=== PATIENT | female | born 1985 | race Hispanic/Latino ===

== ENCOUNTER → 2024-03-25 13:26 | Outpatient (REF) | payer BC, SELFPAY | LOC: PNTC 13:26 | PROVIDERS: ATTENDING PHYSICIAN Obstetrics & Gynecology | DX: Z36.0 Encounter for antenatal screening for chromosomal anomalies (principal); Z36.82 Encounter for antenatal screening for nuchal translucency | CPT/HCPCS: 36415; 59025; 76801; 76813 ==

== ENCOUNTER 2024-10-01 11:23 | Inpatient (IN) | payer BC, SELFPAY ==
[2024-10-01 11:36] VITALS: BP 114/73; BMI 28.1
[2024-10-01 12:34] LABS: % Basophils 0.3 % (0-2); % Eosinophils 0.1 % (0-6); % Immature Granulocytes 0.3 % (0-0.5); % Lymphocytes 15.6 % (20.5-51.1); % Monocytes 5.7 % (1.7-9.3); Absolute Lymphocytes 1.2 10^3/uL (1.2-3.4); Absolute Monocytes 0.4 10^3/uL (0.1-0.6); Absolute Neutrophils 5.9 10^3/uL (1.4-6.5); Hematocrit 35.8 % (37.0-47.0); Hemoglobin 12.4 g/dL (12.0-16.0); Mean Corp Hgb Conc. 34.6 g/dL (33.0-37.0); Mean Corpuscular Hgb 29.4 pg (27.0-31.0); Mean Corpuscular Volume 84.8 fL (81.0-99.0); Mean Platelet Volume 11.9 fL (7.4-10.4); Nucleated Red Blood Cells % 0 %; Platelet Count 163 10^3/uL (130-400); Red Blood Cell Count 4.22 10^6/uL (4.20-5.40); Red Cell Dist. Width 14.6 % (11.5-14.5); White Blood Cell Count 7.5 10^3/uL (4.8-10.8)
[2024-10-01] MEDS: SUBLIMAZE 100 MCG EPIDURAL (13:34)
[2024-10-01] MEDS: FENTANYL/BUPIVACAINE 100 EPIDURAL (13:34)
[2024-10-01] MEDS: LR 1000 IV (13:41)
[2024-10-01] MEDS: PITOCIN 30 UNITS/NSS 500 ML IV (17:10)
[2024-10-01] MEDS: MOTRIN 600 MG PO (21:04)
[2024-10-02] MEDS: MOTRIN 600 MG PO ×3 (03:49→20:02)
[2024-10-02 04:19] LABS: Hematocrit 34.6 % (37.0-47.0); Hemoglobin 11.8 g/dL (12.0-16.0)
[2024-10-02] MEDS: TYLENOL 650 MG PO ×3 (04:25→20:01)
[2024-10-02] MEDS: PRENATAL PLUS 1 TABLET PO (07:57)
[2024-10-02 13:56] LABS: Urine Albumin 1+ (Neg - Trace); Urine Bilirubin Negative (Negative); Urine Character Clear (Clear); Urine Color Yellow; Urine Glucose Negative (Negative); Urine Ketone Negative (Negative); Urine Leukocyte Negative (Negative); Urine Nitrite Negative (Negative); Urine Occult Blood 1+ (Negative); Urine Specific Gravity 1.005 (<1.030); Urine Urobilinogen Negative (Neg - 1+)
[2024-10-02 14:15] LABS: Urine Amorphous Seen; Urine Urothelial Cell 0-2 /LPF (FEW)
[2024-10-02 14:16] LABS: Urine Red Blood Cell 0-2 /HPF (0-2); Urine White Cell 0-2 /HPF (0-5)
[2024-10-02] MEDS: SENOKOT-S 1 TABLET PO (20:02)
[2024-10-03] MEDS: TYLENOL 650 MG PO ×2 (02:01→07:51)
[2024-10-03] MEDS: MOTRIN 600 MG PO ×2 (02:02→07:51)
[2024-10-03] MEDS: PRENATAL PLUS 1 TABLET PO (07:51)
[2024-10-03 11:39] LABS: Syphilis/T. pallidum Ab Reflex Negative (Negative)
== END 2024-10-03 13:41 | disposition home or self-care (01) | DRG 807 ==
LOC: LDRP 11:23
PROVIDERS: Obstetrics & Gynecology; ADMITTING PHYSICIAN Obstetrics & Gynecology
PROC: 10E0XZZ Delivery of Products of Conception, External Approach (ICD-10-PCS; 2024-10-01)
PROC: 0UQMXZZ Repair Vulva, External Approach (ICD-10-PCS; 2024-10-01)
PROC: 10907ZC Drainage of Amniotic Fluid, Therapeutic from Products of Conception, Via Natural or Artificial Opening (ICD-10-PCS; 2024-10-01)
DX: O69.81X0 Labor and delivery complicated by cord around neck, without compression, not applicable or unspecified (principal); Z37.0 Single live birth; O70.0 First degree perineal laceration during delivery; Z3A.39 39 weeks gestation of pregnancy; Z88.5 Allergy status to narcotic agent; Z91.048 Other nonmedicinal substance allergy status
CPT/HCPCS: 36415; 81003; 81015; 85014; 85018; 85025; 86780; 86850; 86900; 86901

== ENCOUNTER 2025-02-21 09:55 | Emergency (ER) | payer BC, SELFPAY ==
[2025-02-21 09:56] VITALS: BMI 23.7
[2025-02-21 10:15] VITALS: BP 119/65
[2025-02-21 11:28] LABS: Hematocrit 34.9 % (37.0-47.0); Hemoglobin 11.9 g/dL (12.0-16.0); Mean Corp Hgb Conc. 34.1 g/dL (33.0-37.0); Mean Corpuscular Volume 81.5 fL (81.0-99.0); Platelet Count 184 10^3/uL (130-400); Red Cell Dist. Width 13.1 % (11.5-14.5)
[2025-02-21 11:41] LABS: ALT (SGPT) 49 U/L (0-35); AST (SGOT) 43 U/L (14-36); Albumin 4.1 g/dl (3.5-5.0); Alkaline Phosphatase 78 U/L (38-126); Blood Urea Nitrogen 6 mg/dl (7-17); Calcium 9.1 mg/dl (8.4-10.2); Carbon Dioxide 23 mmol/L (22-30); Chloride 94 mmol/L (98-107); Glucose 124 mg/dl (70-99); Potassium 3.2 mmol/L (3.5-5.1); Sodium 127 mmol/L (135-145); Total Protein 6.8 g/dl (6.3-8.2); eGFR > 60.00
[2025-02-21 11:43] VITALS: BP 103/63
[2025-02-21 12:00] VITALS: BP 100/62
[2025-02-21] MEDS: NSS 1000 IV (12:10)
[2025-02-21 12:16] LABS: Nucleated Red Blood Cells % 0 %
[2025-02-21] MEDS: DUONEB 3 ML INH (12:42)
[2025-02-21 13:00] VITALS: BP 108/94
[2025-02-21] MEDS: ROCEPHIN 1000 MG IV (13:37)
[2025-02-21] MEDS: ZITHROMAX INFUSION 250 IV (13:37)
[2025-02-21 14:00] VITALS: BP 98/55
--- NOTE | 2025-02-21 14:19 | ED.GENMED ---
History of Present Illness
General
Chief Complaint: Cough
Time Seen by Provider: 02/21/25 12:07
History of Present Illness
History of Present Illness:
39-year-old otherwise healthy female presents to the emergency department for evaluation of fever and productive cough for the past 4 days. Notes that multiple members of her household been sick over the past 1 to 2 weeks with similar respiratory
illnesses but all have gotten better with no specific treatment. She reports increasing right sided chest pain. Went to urgent care prior to arrival and was diagnosed with pneumonia by chest x-ray thus sent to the ED for further evaluation. She
is 4 months and currently breast-feeding
Review of Systems
Review of Systems
Allergies reviewed?: Yes
All Other Systems: ROS reviewed and negative except as documented in HPI and ROS
Phy Exam
Physical Exam
Physical Exam:
GEN: Well appearing, NAD, WDWN
HEENT: Oral mucosa moist, no scleral icterus
Cardiac: Tachycardic, regular
Lung: No respiratory distress, no tachypnea, diminished bibasilar breath sounds
MSK: No gross deformity or injuries
Skin: Good color, no pallor or jaundice, no rashes
Neuro: AO x3, moves all extremities freely
Psych: Calm, cooperative
Course
Orders/Labs/Results
Orders:
Orders
02/21/25 11:15
Electrocardiogram (*1) Urgent
Reason for Study: Shortness of Breath
02/21/25 11:16
EKG- Treatment ONCE
02/21/25 11:20
Complete Blood Count/With Diff Urgent
Comprehensive Metabolic Panel Urgent
Lactic Acid Q4H
Comment: ON ICE, CANCEL 2ND ORDER IF FIRST LACTIC ACID LEVEL <2
Blood Culture Urgent
NICOLASA Source: Blood/Venous
Specimen Description:
02/21/25 11:27
Blood Culture Urgent
NICOLASA Source: Blood/Venous
Specimen Description:
02/21/25 12:09
0.9% Sodium Chloride 1000 ml [Nss] 1,000 ml IV BOLUS
02/21/25 12:42
Ipratropium/Albuterol Sulfate [Duoneb] 3 ml INH R NOW ONE
02/21/25 13:17
Azithromycin 500 mg/250 ml [Zithromax Infusion] 500 mg in 250 ml IV NOW
CefTRIAXone [Rocephin] 1,000 mg IV NOW STA
02/21/25 14:19
Oxycodone [Roxicodone] 5 mg PO NOW STA
02/21/25 15:15
Lactic Acid Q4H
Comment: ON ICE, CANCEL 2ND ORDER IF FIRST LACTIC ACID LEVEL <2
Acetaminophen [Tylenol] 1,000 mg PO NOW STA
Abnormal Lab Results
02/21/25
11:20
WBC 12.1 H 10^3/uL
(4.8-10.8)
Hgb 11.9 L g/dL
(12.0-16.0)
Hct 34.9 L %
(37.0-47.0)
Abs Immat Gran (auto) 0.1 H 10^3/uL
(0-0.05)
Absolute Neuts (auto) 11.3 H 10^3/uL
(1.4-6.5)
Absolute Lymphs (auto) 0.5 L 10^3/uL
(1.2-3.4)
Immature Gran % 0.6 H %
(0-0.5)
Neutrophils % 93.2 H %
(42.2-75.2)
Lymphocytes % 4.4 L %
(20.5-51.1)
Sodium 127 L mmol/L
(135-145)
Potassium 3.2 L mmol/L
(3.5-5.1)
Chloride 94 L mmol/L
(98-107)
BUN 6 L mg/dl
(7-17)
Glucose 124 H mg/dl
(70-99)
Lactic Acid 2.6 H mmol/L
(0.7-2.0)
Total Bilirubin 1.4 H mg/dl
(0.2-1.3)
AST 43 H U/L
(14-36)
ALT 49 H U/L
(0-35)
02/21/25 11:20
02/21/25 11:20
Vital Signs
Initial and Last Documented VS:
Initial Vital Signs
Temp Pulse Resp BP Pulse Ox
98.5 F 83 16 119/65 98
02/21/25 10:15 02/21/25 10:15 02/21/25 10:15 02/21/25 10:15 02/21/25 10:15
Last Documented Vital Signs
Temp Pulse Resp BP Pulse Ox
98.5 F 82 28 98/54 97
02/21/25 10:15 02/21/25 15:00 02/21/25 15:00 02/21/25 15:00 02/21/25 15:00
MDM/Problems Addressed
MDM/Problems Addressed:
Patient's x-ray was personally reviewed by me after being sent an email from the urgent care facility, this shows a clear right middle lobe infiltrate with atelectasis in the left lower lobe. Does have mild leukocytosis and symptoms of respiratory
infection thus we will treat as pneumonia. Her chest pain is most likely pleurisy in the setting of acute lung infection. Given IV ceftriaxone and azithromycin in the ED and will discharge on 4 further days of dual therapy, ED return parameters
discussed. Recommend outpatient follow-up with your primary care for repeat x-ray in 6 to 8 weeks
Comment
Comment:
EKG independently interpreted by me shows normal sinus rhythm at a rate of [address] changes concerning for ischemia
*Pulse Oximetry
SaO2: 98
Oxygen Mode of Delivery: Room air
Patient hypoxic: no
*Critical Care Note
Total Time (30-74mins, 75-104mins- exclusive of procedures): Not Applicable
ED Attending Note
-
Portions of this chart may have been created with voice recognition software.� Occasional wrong word or��sound alike� substitutions may have occurred due to the inherent limitations of voice recognition software.
Discharge Plan
Departure
Patient Disposition: Home (Routine Discharge)
Date of Disposition: 02/21/25
Time of Disposition: 14:20
Patient with high blood pressure during this ER visit?: No
Discharge Problem:
Right middle lobe pneumonia
Instructions: Pneumonia, Adult (DC)
Prescriptions:
New
cefdinir 300 mg capsule
300 mg PO Q12H 4 Days Qty: 8 0RF
azithromycin [Zithromax] 250 mg tablet
250 mg PO DAILY Qty: 4 0RF
No Action
PNV no.95-ferrous fumarate-FA [] 1 EACH tablet
1 ea PO DAILY
sennosides-docusate sodium 8.6-50 mg Tablet
1 tab PO DAILYPRN PRN (Reason: constipation) Qty: 0 0RF
ibuprofen 600 mg Tablet
600 mg PO Q6HPRN PRN (Reason: moderate pain/cramps) Qty: 45 0RF
acetaminophen 325 mg Tablet
650 mg PO Q4HPRN PRN (Reason: mild pain) Qty: 0 0RF
Referrals:
NONE,* [Family Provider, Internal Medicine]
Interventions
Interventions:
*Risk Screen - Suicide Last Done: 02/21/25 10:15
*General Assessment Last Done: 02/21/25 15:26
*Neglect/Abuse Screening Last Done: 02/21/25 10:15
*ED- Fall Risk Assessment Last Done: 02/21/25 14:32
*ED COVID-19 Vaccine History Last Done: 02/21/25 14:32
*Nursing Disposition Last Done: 02/21/25 15:26
ED- Pulmonary Assessment Last Done: 02/21/25 14:32
Discharge Date and Time
Discharge Date/Time: 02/21/25 15:28
Print Language: NAMIBIAN
[2025-02-21 15:00] VITALS: BP 98/54
[2025-02-21] MEDS: TYLENOL 1000 MG PO (15:15)
== END 2025-02-21 15:28 | disposition home or self-care (01) ==
LOC: EMR 09:55
PROVIDERS: EMERGENCY PHYSICIAN Student in an Organized Health Care Education/Training Program
DX: J18.9 Pneumonia, unspecified organism (principal); R07.89 Other chest pain
CPT/HCPCS: 99284; 94640; 96374; 96375; 80053; 83605; 85025; 87040; 93005